=== PATIENT | male | born 1950 | race Caucasian/White ===

== ENCOUNTER → 2018-07-13 15:48 | Outpatient (CLI) | payer MEDICARE, OTHER, SELFPAY ==
--- NOTE | 2018-07-13 | DI.US.S_ITS ---
PROCEDURE: US RENAL COMPLETE INDICATIONS: Calculus of kidney TECHNIQUE: Real-time scanning was performed of the kidneys and bladder, with image documentation. COMPARISON: None. FINDINGS: Kidneys: Kidneys are normal in size. Right kidney measures 12.9 cm long; left kidney measures 12.3 cm long. Right renal cortical thickness is 2.4 cm; left renal cortical thickness is 2.5 cm. Renal cortical echotexture is normal. No hydronephrosis or nephrolithiasis. No suspicious solid mass lesions. Bladder: Pre-void bladder volume is 764 mL. Post-void residual is 12 mL. Pre-void images demonstrate no intraluminal masses or stones. On pre-void images, bilateral ureteral jets are noted with color Doppler interrogation. (Of note, ureteral jets may not be detectable in up to 25% of cases due to insufficient differences in specific gravity between ureteral and bladder urine). Miscellaneous: No free pelvic fluid. IMPRESSION: 1. No visualized renal calculus. No renal obstruction. Dictated by: Annabel Croft M.D. on 07/13/2018 at 17:01 Approved by: Annabel Croft M.D. on 07/13/2018 at 17:02
== END ==
PROVIDERS: Family Provider Urology; PCP Family Medicine; Visit Provider Internal Medicine
DX: N20.0 Calculus of kidney (principal)
CPT/HCPCS: 76770

== ENCOUNTER 2021-12-21 14:15 | Emergency (ER) | payer MEDICARE, OTHER, SELFPAY ==
[2021-12-21] VITALS (18 sets, daily range): BP systolic 102–133; BP diastolic 64–90; PULSE 76–113; RESP 13–23; TEMP 36.6–37.1; O2SAT 95–99
[2021-12-21] MEDS: SODIUM CHLORIDE 0.9% 1,000 ML 1000 ML IV (15:03)
--- NOTE | 2021-12-21 15:07 | DI.MRI.S_ITS ---
PROCEDURE: MR LUMBAR SPINE WO/W CON INDICATIONS: Thoracic spine diskitis also has tenderness upper lumbar spi TECHNIQUE: Noncontrast sagittal T1 spin echo and T2 fast spin echo, sagittal STIR, axial T1 and T2 fast spin echo through the lumbar spine. In cases with scoliosis, additional coronal T2 fast spin echo may be performed. After the administration of contrast, sagittal and axial T1 spin echo with fat saturation through the lumbar spine. COMPARISON: [facility], , MR THORACIC SPINE WO/W CON, 12/21/2021, 15:31. (A prior outside CT exam is not available for review at the time of this dictation.) FINDINGS: Image quality: Excellent. Alignment and curvature: There is minimal retrolisthesis seen at T12-L1, L1-L2, and L2-L3. Minimal anterolisthesis is seen at L4-L5. Marrow: Marrow is of normal overall signal. Scattered foci are seen, which are hyperintense on T1-weighted and T2-weighted imaging, which are most consistent with benign vertebral body hemangiomas. No acute vertebral body compression fractures. At the inferior endplate of T12, there is a vertically oriented focus with a mild degree of enhancement has the appearance of a subacute Schmorl's node. Spinal cord: Conus medullaris terminates at the L1 level. Visualized spinal cord demonstrates normal signal, without suspicious enhancement. Paraspinous soft tissues: No paravertebral masses or abnormal enhancement. T12-L1: The disc height is relatively well preserved. Increased T2 weighted signal and mildly increased enhancement can be seen at this level. Mild generalized disc bulge is seen. No significant neural foraminal or central canal narrowing can be seen. L1-L2: Mild loss of disc height is seen. Loss of disc signal is seen. Moderate generalized disc bulge is seen. Mild facet joint hypertrophy is seen. At least moderate bilateral neural foraminal narrowing can be seen. Mild central canal narrowing is seen. L2-L3: Moderate loss of disc height is seen. Loss of disc signal is seen. At least moderate disc bulge is seen. Mild to moderate facet hypertrophy is seen at this level. There is moderate right-sided and mild left-sided neural foraminal narrowing. Moderate central canal narrowing is seen. L3-L4: The disc height and disk signal are well-preserved. Mild to moderate disc bulge is seen. Moderate facet joint hypertrophy is seen. Moderate bilateral neural foraminal narrowing is seen. Moderate central canal narrowing is seen. L4-L5: The disc height is well-preserved. Loss of disc signal is seen at this level. Moderate generalized disc bulge is seen. Moderate to prominent facet hypertrophy is seen. There is at least moderate bilateral neural foraminal narrowing seen. There is a degree of compression seen upon the exiting nerve roots. Mild central canal narrowing is seen. L5-S1: Mild loss of disc height is seen. Loss of disc signal is seen. Mild generalized disc bulge is seen. Is Mild facet joint hypertrophy is seen. Minimal bilateral neural foraminal narrowing can be seen. Minimal central canal narrowing is seen. IMPRESSION: No ramy findings of discitis, osteomyelitis, or epidural abscess can be seen. At the inferior endplate of T12, there is an apparent subacute Schmorl's node, with associated presumed degenerative change of the T12-L1 disc. Attention should be paid at this disc level on any future follow-up studies. Multiple levels of lumbar spine degenerative change are seen. Note: Case discussed by telephone with Dr. Richards at 3:55 p.m. [place] time on December 21, 2021. Dictated by: Salvatore Bergeron M.D. on 12/21/2021 at 15:57 Approved by: Salvatore Bergeron M.D. on 12/21/2021 at 16:02
--- NOTE | 2021-12-21 15:07 | DI.MRI.S_ITS ---
PROCEDURE: MR THORACIC SPINE WO/W CON INDICATIONS: T7 fx with phlegmon concern for diskitis on CT scan TECHNIQUE: Noncontrast sagittal T1 spin echo and T2 fast spin echo, sagittal STIR, axial T1 and T2 fast spin echo through the thoracic spine. After the administration of contrast, axial and sagittal T1 spin echo with fat saturation through the thoracic spine. COMPARISON: [facility], , MR LUMBAR SPINE WO/W CON, 12/21/2021, 15:31. (The prior outside CT scan is not available for review at the time of this dictation. FINDINGS: Image quality: Excellent. Alignment and curvature: Accentuated thoracic kyphosis is seen. No focal AP alignment abnormality is seen. Marrow: Marrow is of normal overall signal. No acute vertebral body compression fractures. Spinal cord: Visualized spinal cord is of normal signal and size, without abnormal enhancement. Paraspinous soft tissues: Generalized abnormal enhancement can be seen within the soft tissues adjacent to the T7 and T8 level. No soft tissue abscess is seen. Miscellaneous: At the T7-T8 level, there is abnormal fluid signal seen along the disc level. Endplate irregularity is seen. The disc space overall is moderately narrowed. At least moderate disc bulge is seen. There is abnormal edema seen of the T7 and T8 vertebral bodies, with decreased T1 weighted signal and increased STIR signal. Abnormal enhancement can be seen of these vertebral bodies. No ramy epidural fluid collection is seen to suggest abscess. However, there is mild generalized enhancement seen posterior to the lower thoracic spine vertebral bodies, as on series 14, image 10, which is attributed to prominent venous plexus. Generalized age-appropriate degenerative changes are seen elsewhere. Lower cervical spine degenerative changes are partially seen. IMPRESSION: Discitis and osteomyelitis at the T7-T8 level until proven otherwise. No ramy epidural abscess is seen. Associated soft tissue swelling and irregularity can be seen surrounding the T7-T8 level, without a drainable soft tissue abscess. Note: Case discussed by telephone with Dr. Richards at 3:55 p.m. [place] time on December 21, 2021. Dictated by: Salvatore Bergeron M.D. on 12/21/2021 at 15:50 Approved by: Salvatore Bergeron M.D. on 12/21/2021 at 15:57
--- NOTE | 2021-12-21 15:09 | ED_ITS ---
HPI - Back Pain/Injury General Chief Complaint: Back Pain/Injury Stated Complaint: infection in back sent by clinic Time Seen by Provider: 12/21/21 14:56 Source: patient Mode of arrival: Ambulatory History of Present Illness HPI Narrative: Patient is a 71-year-old male who was sent to the emergency department from the primary doctor clinic for evaluation of an infection in his back. He states that approximately 1 month ago he started to have what he describes as muscle spasms in his upper back. There is not 1 specific incident that caused the symptoms. He thought that it was after he mowed the lawn although with conservative treatments and also medications symptoms were not improving. He also has been having history of hematuria. On December [address] scan of his abdomen and pelvis hematuria protocol which showed no signs of nephrolithiasis but did show a bladder mass. He was supposed to have a follow- up tomorrow with Urology regarding this. His back symptoms were not improving and actually worsening and so he went to the walk-in clinic today. Had x-rays performed which showed a T7 compression fracture. This was followed up with a CT scan of the thoracic spine which according to the report shows a phlegmon p otential developing abscess or diskitis at this level. Patient denies fevers. He denies numbness or tingling in his upper lower extremities. Denies chest pain. No shortness of breath. No abdominal pains. No change in bowel habits. No urinary symptoms. No skin rashes. No patient is on anticoagulation for persistent AFib. Related Data Home Medications Medication Instructions Recorded Confirmed magnesium oxide 400 mg (241.3 mg 400 mg PO HS #0 05/11/17 magnesium) tablet rivaroxaban 20 mg tablet (Xarelto) 20 mg PO HS #0 05/11/17 sotalol 120 mg tablet 180 mg PO SEE INSTRUCTIONS #0 05/11/17 Previous Rx's Medication Instructions Recorded aspirin 81 mg tablet,delayed 81 mg PO BID #60 06/01/17 release hydroxyzine pamoate 25 mg capsule 0 mg PO Q4HP PRN #60 cap 06/01/17 oxycodone 5 mg tablet 0 mg PO Q3HP PRN #60 06/01/17 Allergies Allergy/AdvReac Type Severity Reaction Status Date / Time No Known Drug Allergies Allergy Verified 12/21/21 15:14 Review of Systems Review of Systems ROS Unobtainable: All systems reviewed & are unremarkable except as noted in HPI and below Constitutional Constitutional: Denies fever(s) Cardiovascular Cardiovascular: Reports as per HPI and Reports system reviewed and no additional complaints, except as documented Respiratory Respiratory: Reports as per HPI and Reports system reviewed and no additional complaints, except as documented Gastrointestinal Gastrointestinal: Reports as per HPI and Reports system reviewed and no additional complaints, except as documented Genitourinary Comments: Hematuria Musculoskeletal Musculoskeletal: Reports system reviewed and no additional complaints, except as documented and Reports as per HPI Integumentary/Breasts Skin/Breast: Reports system reviewed and no additional complaints, except as documented and Reports as per HPI Neurologic Neurologic: Reports system reviewed and no additional complaints, except as documented Hematologic/Lymphatic On Anticoagulants: No Allergic/Immunologic Allergic/Immunologic: Reports system reviewed and no additional complaints, except as documented Patient History Medical History Afib HTN (hypertension) Hyperlipidemia Right nephrolithiasis Social History Smoking Status: Never smoker Smoking Status: Never smoker Exam Initial Vital Signs Initial Vital Signs: Vital Signs Temperature 97.9 F 12/21/21 14:22 Pulse Rate 76 12/21/21 14:22 Respiratory Rate 22 12/21/21 14:22 Blood Pressure 130/72 12/21/21 14:22 Pulse Oximetry 98 12/21/21 14:22 Const General: cooperative, comfortable and well developed HENMT Head: normal to inspection and normocephalic Resp Effort & Inspection: normal respiratory effort Auscultation: clear to auscultation bilaterally Cardio Rate: regular rate Rhythm: regular rhythm GI Inspection: normal to inspection Palpation: soft and No tender Back/Spine/Pelvis Cervical Spine: No cervical spinal tenderness Thoracic/Lumbar Spine: paraspinal tenderness, thoracic spinal tenderness and lumbar spinal tenderness Skin General: no rashes or lesions noted Neuro General: patient alert, patient awake and moves all extremities Extrem General: normal to inspection and capillary refill normal Psych Appearance: grossly normal and well kempt Scores GCS Ellie coma scale eye opening: Spontaneous Ellie coma scale verbal response: Orientated Ellie coma scale motor response: Obey commands Ellie coma scale total score: 15 Course Orders Ordered: ED Orders 12/21/21 14:52 RT Consult Eval and Treat NOW 12/21/21 14:55 Blood Culture Stat CRP [C-Reactive Protein Quant] Stat Complete Blood Count AUTO DIFF Stat Comprehensive Metabolic Panel Stat ESR [Erythrocyte Sedimentation Rate] Stat Lactate (Lactic Acid) Stat Lipase Stat Procalcitonin Stat 12/21/21 15:05 COVID19 -Nasal RAPID/Pre-Proc Stat 12/21/21 15:07 MR lumbar spine wo/w con Stat MR thoracic spine wo/w con Stat Discontinued Medications Hydromorphone HCl (Hydromorphone 1 Mg Inj) 1 mg IV NOW ONE Stop: 12/21/21 19:00 Last Admin: 12/21/21 19:37 Dose: 1 mg Documented by: TONE Sodium Chloride (Normal Saline 0.9%) 1,000 mls @ 1,000 mls/hr IV BOLUS ONE Stop: 12/21/21 15:51 Last Infusion: 12/21/21 17:16 Dose: 0 mls/hr Documented by: Infusion: 12/21/21 16:25 Dose: 1,000 mls/hr Documented by: Infusion: 12/21/21 15:24 Dose: 0 mls/hr Documented by: Admin: 12/21/21 15:03 Dose: 1,000 mls/hr Documented by: LAURIE Ceftriaxone Sodium 2,000 mg/ (Sodium Chloride) 100 mls @ 200 mls/hr IV NOW ONE Stop: 12/21/21 15:12 Last Infusion: 12/21/21 17:17 Dose: 0 mls/hr Documented by: Admin: 12/21/21 16:25 Dose: 200 mls/hr Documented by: TONE Vancomycin HCl/Dextrose (Vancomycin) 2,000 mg in 400 mls @ 200 mls/hr IV NOW ONE Stop: 12/21/21 17:11 Last Infusion: 12/21/21 18:20 Dose: 0 mls/hr Documented by: Admin: 12/21/21 16:32 Dose: 200 mls/hr Documented by: TONE Morphine Sulfate (Morphine 4 Mg/Ml Inj) 4 mg IV NOW ONE Stop: 12/21/21 15:09 Last Admin: 12/21/21 15:15 Dose: 4 mg Documented by: LAURIE Morphine Sulfate (Morphine 4 Mg/Ml Inj) 4 mg IV NOW ONE Stop: 12/21/21 16:37 Last Admin: 12/21/21 16:41 Dose: 4 mg Documented by: TONE Vital Signs Vital signs: Vital Signs - 8 hr 12/21/21 14:22 12/21/21 14:34 12/21/21 14:35 Temperature 97.9 F Pulse Rate 76 100 H 94 H Respiratory Rate 22 Blood Pressure 130/72 128/77 Pulse Oximetry 98 99 99 12/21/21 15:00 12/21/21 16:37 12/21/21 16:43 Temperature Pulse Rate 96 H 85 101 H Respiratory Rate 20 18 Blood Pressure 126/79 Pulse Oximetry 98 98 98 12/21/21 16:44 12/21/21 17:00 12/21/21 17:30 Temperature Pulse Rate 104 H 113 H 103 H Respiratory Rate 14 15 13 Blood Pressure 102/68 112/75 133/68 Pulse Oximetry 97 98 97 12/21/21 18:00 12/21/21 18:25 12/21/21 18:30 Temperature 98.7 F Pulse Rate 94 H 96 H Respiratory Rate 17 18 Blood Pressure 107/64 113/77 Pulse Oximetry 97 96 12/21/21 19:00 12/21/21 19:30 12/21/21 19:39 Temperature 98.7 F Pulse Rate 91 H 95 H Respiratory Rate 13 13 Blood Pressure 133/90 128/83 Pulse Oximetry 97 98 MDM - Back Pain/Injury Lab Data Attestation: I reviewed the patient's lab results. Result diagrams: 12/21/21 14:55 12/21/21 14:55 Labs: Lab Results 12/21/21 12/21/21 12/21/21 Range/Units 14:55 14:55 14:55 WBC 9.7 (4.5-11.0) X10^3/uL RBC 4.68 (4.5-5.9) X10^6/uL Hgb 14.0 (13.5-17.5) g/dL Hct 42.1 (41-53) % MCV 89.9 (80-100) fL MCH 29.9 (26-34) PG MCHC 33.3 (30-36) % RDW 13.2 (11.6-14.8) % Plt Count 420 H (150-400) X10^3/uL Neut % (Auto) 76.5 H (50-75) % Lymph % (Auto) 17.4 L (25-40) % Crenshaw % (Auto) 5.5 (3-14) % Eos % (Auto) 0.2 L (2-4) % Baso % (Auto) 0.4 (0-2) % Neut # (Auto) 7400 H (8642-8193) /uL Lymph # (Auto) 1700 (6842-9864) /uL Crenshaw # (Auto) 500 (0-900) /uL Eos # (Auto) 0 (0-450) /uL Baso # (Auto) 0 (0-100) /uL ESR (0-15) MM/HR Sodium 137 (137-145) mmol/L Potassium 3.2 L (3.4-5.1) mmol/L Chloride 102 (98-107) mmol/L Carbon Dioxide 24 (22-32) mmol/L BUN 23 H (9-20) mg/dL Creatinine 0.74 (0.66-1.25) mg/dL Estimated GFR > 60 (>60) mL/min BUN/Creatinine Ratio 31.1 H (6-22) Glucose 116 H (80-110) mg/dL Lactate 1.7 (0.7-2.1) mmol/L Calcium 9.1 (8.4-10.2) mg/dL Total Bilirubin 1.1 (0.2-1.3) mg/dL AST 21 (17-59) IU/L ALT 15 (<50) IU/L Alkaline Phosphatase 95 (38-126) U/L C-Reactive Protein (<1.0) mg/dL Total Protein 7.6 (6.3-8.2) g/dL Albumin 4.0 (3.5-5.0) g/dL Globulin 3.6 (1.7-4.1) g/dL Albumin/Globulin Ratio 1.1 (1.0-2.8) Lipase 50 (23-300) U/L Procalcitonin 0.07 (<0.5) ng/mL SARS-CoV-2 (PCR) (Negative) 12/21/21 12/21/21 12/21/21 Range/Units 14:55 14:55 15:05 WBC (4.5-11.0) X10^3/uL RBC (4.5-5.9) X10^6/uL Hgb (13.5-17.5) g/dL Hct (41-53) % MCV (80-100) fL MCH (26-34) PG MCHC (30-36) % RDW (11.6-14.8) % Plt Count (150-400) X10^3/uL Neut % (Auto) (50-75) % Lymph % (Auto) (25-40) % Crenshaw % (Auto) (3-14) % Eos % (Auto) (2-4) % Baso % (Auto) (0-2) % Neut # (Auto) (9146-5162) /uL Lymph # (Auto) (4041-9835) /uL Crenshaw # (Auto) (0-900) /uL Eos # (Auto) (0-450) /uL Baso # (Auto) (0-100) /uL ESR 56 H (0-15) MM/HR Sodium (137-145) mmol/L Potassium (3.4-5.1) mmol/L Chloride (98-107) mmol/L Carbon Dioxide (22-32) mmol/L BUN (9-20) mg/dL Creatinine (0.66-1.25) mg/dL Estimated GFR (>60) mL/min BUN/Creatinine Ratio (6-22) Glucose (80-110) mg/dL Lactate (0.7-2.1) mmol/L Calcium (8.4-10.2) mg/dL Total Bilirubin (0.2-1.3) mg/dL AST (17-59) IU/L ALT (<50) IU/L Alkaline Phosphatase (38-126) U/L C-Reactive Protein 2.8 H (<1.0) mg/dL Total Protein (6.3-8.2) g/dL Albumin (3.5-5.0) g/dL Globulin (1.7-4.1) g/dL Albumin/Globulin Ratio (1.0-2.8) Lipase (23-300) U/L Procalcitonin (<0.5) ng/mL SARS-CoV-2 (PCR) Negative (Negative) Imaging Data Thoracic spine MRI: Radiologist's Impression: [address] [address] Magnetic Resonance Report Signed Patient: Mario Clay MR#: [id number] : 1950 Acct:[id number] Age/Sex: 71 / M Date of Service: 12/21/21 Loc: ED Accession Number: [id number] ?? Procedure: MR thoracic spine wo/w con Ordering Provider: Derrick Richards D.O. PROCEDURE:? MR THORACIC SPINE WO/W CON ? INDICATIONS:? T7 fx with phlegmon concern for diskitis on CT scan ? TECHNIQUE:? Noncontrast sagittal T1 spin echo and T2 fast spin echo, sagittal STIR, axial T1 and T2 fast spin echo through the thoracic spine.? After the administration of contrast, axial and sagittal T1 spin echo with fat saturation through the thoracic spine.? ? COMPARISON:? [facility], , MR LUMBAR SPINE WO/W CON, 12/21/2021, 15:31.? (The prior outside CT scan is not available for review at the time of this dictation. ? FINDINGS:? Image quality:? Excellent.? ? Alignment and curvature:? Accentuated thoracic kyphosis is seen. No focal AP alignment abnormality is seen. ? ? Marrow:? Marrow is of normal overall signal.? No acute vertebral body compression fractures. ? Spinal cord:? Visualized spinal cord is of normal signal and size, without abnormal enhancement.? ? Paraspinous soft tissues:? Generalized abnormal enhancement can be seen within the soft tissues adjacent to the T7 and T8 level.? No soft tissue abscess is seen. ? Miscellaneous:? At the T7-T8 level, there is abnormal fluid signal seen along the disc level.? Endplate irregularity is seen.? The disc space overall is moderately narrowed.? At least moderate disc bulge is seen.? There is abnormal edema seen of the T7 and T8 vertebral bodies, with decreased T1 weighted signal and increased STIR signal.? Abnormal enhancement can be seen of these vertebral bodies. ? No ramy epidural fluid collection is seen to suggest abscess.? However, there is mild generalized enhancement seen posterior to the lower thoracic spine vertebral bodies, as on series 14, image 10, which is attributed to prominent venous plexus. ? Generalized age-appropriate degenerative changes are seen elsewhere. ? Lower cervical spine degenerative changes are partially seen.? IMPRESSION:? Discitis and osteomyelitis at the T7-T8 level until proven otherwis e. ? No ramy epidural abscess is seen. ? Associated soft tissue swelling and irregularity can be seen surrounding the T7- T8 level, without a drainable soft tissue abscess. ? ? Note: Case discussed by telephone with Dr. Richards at 3:55 p.m. [place] time on December 21, 2021.? ? ? Dictated by: Salvatore Bergeron M.D. on 12/21/2021 at 15:50 ? ? Approved by: Salvatore Bergeron M.D. on 12/21/2021 at 15:57? lumbar mri: Radiologist's Impression: [address] [address] Magnetic Resonance Report Signed Patient: Mario Clay MR#: [id number] : 1950 Acct:[id number] Age/Sex: 71 / M Date of Service: 12/21/21 Loc: ED Accession Number: [id number] ?? Procedure: MR lumbar spine wo/w con Ordering Provider: Derrick Richards D.O. PROCEDURE:? MR LUMBAR SPINE WO/W CON ? INDICATIONS:? Thoracic spine diskitis also has tenderness upper lumbar spi ? TECHNIQUE:? Noncontrast sagittal T1 spin echo and T2 fast spin echo, sagittal STIR, axial T1 and T2 fast spin echo through the lumbar spine.? In cases with scoliosis, additional coronal T2 fast spin echo may be performed.? After the administration of contrast, sagittal and axial T1 spin echo with fat saturation through the lumbar spine.? ? COMPARISON:? [facility], , MR THORACIC SPINE WO/W CON, 12/21/2021, 15:31.? (A prior outside CT exam is not available for review at the time of this dictation.) ? FINDINGS:? Image quality:? Excellent.? ? Alignment and curvature:? There is minimal retrolisthesis seen at T12-L1, L1-L2, and L2-L3.? Minimal anterolisthesis is seen at L4-L5. ? Marrow:? Marrow is of normal overall signal. Scattered foci are seen, which are hyperintense on T1-weighted and T2-weighted imaging, which are most consistent with benign vertebral body hemangiomas.? No acute vertebral body compression fractures.? At the inferior endplate of T12, there is a vertically oriented focus with a mild degree of enhancement has the appearance of a subacute Schmorl's node. ? Spinal cord:? Conus medullaris terminates at the L1 level.? Visualized spinal cord demonstrates normal signal, without suspicious enhancement.? ? Paraspinous soft tissues:? No paravertebral masses or abnormal enhancement.? ? T12-L1:? The disc height is relatively well preserved.? Increased T2 weighted signal and mildly increased enhancement can be seen at this level. Mild generalized disc bulge is seen.? No significant neural foraminal or central canal narrowing can be seen.? ? L1-L2:? Mild loss of disc height is seen. Loss of disc signal is seen.? Moderate generalized disc bulge is seen. Mild facet joint hypertrophy is seen.? At least moderate bilateral neural foraminal narrowing can be seen. Mild central canal narrowing is seen.? ? L2-L3:? Moderate loss of disc height is seen.? Loss of disc signal is seen.? At least moderate disc bulge is seen.? Mild to moderate facet hypertrophy is seen at this level.? There is moderate right-sided and mild left-sided neural foraminal narrowing.? Moderate central canal narrowing is seen.? ? L3-L4:? The disc height and disk signal are well-preserved.? Mild to moderate disc bulge is seen.? Moderate facet joint hypertrophy is seen. Moderate bilateral neural fo raminal narrowing is seen.? Moderate central canal narrowing is seen.? ? L4-L5:? The disc height is well-preserved.? Loss of disc signal is seen at this level.? Moderate generalized disc bulge is seen.? Moderate to prominent facet hypertrophy is seen.? There is at least moderate bilateral neural foraminal narrowing seen. There is a degree of compression seen upon the exiting nerve roots.? Mild central canal narrowing is seen.? ? L5-S1:? Mild loss of disc height is seen. Loss of disc signal is seen.? Mild generalized disc bulge is seen.? Is Mild facet joint hypertrophy is seen. Minimal bilateral neural foraminal narrowing can be seen.? Minimal central canal narrowing is seen.? ? ? IMPRESSION:? ? No ramy findings of discitis, osteomyelitis, or epidural abscess can be seen. ? At the inferior endplate of T12, there is an apparent subacute Schmorl's node, with associated presumed degenerative change of the T12-L1 disc.? Attention should be paid at this disc level on any future follow-up studies. ? Multiple levels of lumbar spine degenerative change are seen. ? Note: Case discussed by telephone with Dr. Richards at 3:55 p.m. [place] time on December 21, 2021.? Dictated by: Salvatore Bergeron M.D. on 12/21/2021 at 15:57 ? ? Approved by: Salvatore Bergeron M.D. on 12/21/2021 at 16:02? MDM Narrative Medical decision making narrative: Unsure of the exact source of his diskitis/osteomyelitis of the thoracic spine. Patient is stable but is having quite a bit of discomfort in this area in his back. Blood cultures were obtained. Was given 2 g of Rocephin and 2 g of vancomycin. I was not able to see the pictures of the thoracic spine CT that he had earlier today but I did see the report which mentioned a T7 compression fracture. The MRI performed today did not mention this. The patient did have a CT scan of his abdomen and pelvis at the end of November for hematuria. There was noted a mass in the bladder. The patient does know about this. He was scheduled to see Urology tomorrow. I did discuss the case with Dr. Serna on- call for Orthopedics at this facility. She stated that she was uncomfortable ac cepting the patient for our spine surgeon without talking with him. He is not on-call today. We were unable to get in touch with him. She recommended the patient be transferred for further evaluation and treatment. I discussed the case with Neurosurgery at [facility] who agreed to see the patient upon transfer. I then discussed the case with WEED BURNER May the nurse practitioner at [facility] for the medicine service who accepts the patient in transfer. Patient is stable for transport. Discharge Plan Departure Patient Disposition: [facility] Clinical Impression: Acute osteomyelitis of thoracic spine Prescriptions: No Action sotalol 120 MG tablet 180 mg PO SEE INSTRUCTIONS Qty: 0 0RF magnesium oxide 400 MG tablet 400 mg PO HS Qty: 0 0RF rivaroxaban [Xarelto] 20 MG tablet 20 mg PO HS Qty: 0 0RF aspirin 81 MG tablet,delayed release (DR/EC) 81 mg PO BID Qty: 60 0RF oxycodone 5 MG tablet 0 mg PO Q3HP PRNQty: 60 0RF hydroxyzine pamoate 25 MG capsule 0 mg PO Q4HP PRNQty: 60 0RF Referrals: Erika Waters ND [Primary Care Provider] -
[2021-12-21 15:11] LABS: Alanine Aminotransferase 15 IU/L (<50); Albumin Globulin Ratio 1.1 (1.0-2.8); Alkaline Phosphatase 95 U/L (38-126); Aspartate Aminotransferase 21 IU/L (17-59); BUN Creatinine Ratio 31.1 (6-22); Bilirubin Total 1.1 mg/dL (0.2-1.3); Blood Urea Nitrogen 23 mg/dL (9-20); Calcium 9.1 mg/dL (8.4-10.2); Carbon Dioxide 24 mmol/L (22-32); Chloride 102 mmol/L (98-107); Estimated Glomerular Filt Rate > 60 mL/min (>60); Globulin 3.6 g/dL (1.7-4.1); Glucose 116 mg/dL (80-110); HEMOLYSIS < 15 (0-50); Lactate (Lactic Acid) 1.7 mmol/L (0.7-2.1); Lipase 50 U/L (23-300); Potassium 3.2 mmol/L (3.4-5.1); Sodium 137 mmol/L (137-145); Total Protein 7.6 g/dL (6.3-8.2)
[2021-12-21 15:12] LABS: Add Manual Diff / Slide Review NO; Basophils Absolute Auto 0 /uL (0-100); Basophils Percent Auto 0.4 % (0-2); Eosinophils Absolute Auto 0 /uL (0-450); Eosinophils Percent Auto 0.2 % (2-4); Hematocrit 42.1 % (41-53); Lymphocytes Absolute Auto 1700 /uL (1100-4500); Lymphocytes Percent Auto 17.4 % (25-40); Mean Corpuscular HGB Conc 33.3 % (30-36); Mean Corpuscular Hemoglobin 29.9 PG (26-34); Mean Corpuscular Volume 89.9 fL (80-100); Monocytes Absolute Auto 500 /uL (0-900); Monocytes Percent Auto 5.5 % (3-14); Neutrophils Absolute Auto 7400 /uL (1500-7000); Neutrophils Percent Auto 76.5 % (50-75); Platelet Count 420 X10^3/uL (150-400); Red Blood Cell Count 4.68 X10^6/uL (4.5-5.9); Red Cell Distribution Width 13.2 % (11.6-14.8); White Blood Cell Count 9.7 X10^3/uL (4.5-11.0)
[2021-12-21] MEDS: MORPHINE 4 MG/ML INJ IV ×2 (15:15→16:41)
[2021-12-21 15:27] LABS: Procalcitonin 0.07 ng/mL (<0.5)
[2021-12-21 15:32] LABS: COVID19 -Nasal RAPID Negative (Negative)
[2021-12-21] MEDS: cefTRIAXone 2,000 MG in SODIUM CHLORIDE 0.9% 100 ML 200 ML IV (16:25)
[2021-12-21] MEDS: VANCOMYCIN 2,000 MG/400 ML PIGGYBACK 200 MG IV (16:32)
[2021-12-21 17:38] LABS: C-Reactive Protein Quant 2.8 mg/dL (<1.0)
[2021-12-21 17:51] LABS: Erythrocyte Sedimentation Rate 56 MM/HR (0-15)
--- NOTE | 2021-12-21 17:55 | PC.NURSE ---
Called and placed patient on the transfer list for [facility] at 1743, [facility] at 1747, and [facility] [place] at 1753. Patient face sheet, and Covid result faxed and images electronically sent.
[2021-12-21] MEDS: HYDROMORPHONE 1 MG INJ IV ×2 (19:37→21:00)
--- NOTE | 2021-12-21 20:06 | PC.NURSE ---
NW P/U 2100 Accepted [facility] Provider: Glenis VERDUGO/ [facility] RM 268 Nurse report [phone] Nilsa RN report called to rn at [phone] updated daughter fran mcmanus regarding transfer to [facility] and visiting hours and policy of [facility]
== END 2021-12-21 21:11 | disposition short-term general hospital (02) ==
PROVIDERS: Emergency Provider Emergency Medicine; Family Provider Urology; PCP Naturopath
DX: M46.24 Osteomyelitis of vertebra, thoracic region (principal); M54.50 Low back pain, unspecified; Z20.822 Contact with and (suspected) exposure to COVID-19
CPT/HCPCS: 36415; 72157; 72158; 80053; 83605; 83690; 84145; 85025; 85651; 86140; 87040; 87635; 96365; 96366; 96368; 96375; 96376; 99284; C9803; J0696; J1170; J2270